=== PATIENT | female | born 1955 | race Caucasian/White ===

== ENCOUNTER 2019-01-08 08:53 | Observation (INO) | payer OTHER ==
[2019-01-05 11:27] LABS: Absolute Lymphocytes (CBC) 1.9 K/uL (0.7-4.9); Absolute Monocytes 0.5 K/uL (0.1-1.3); Absolute Neutrophil 4.2 K/uL (1.8-8.0); Basophils % 0.3 % (0-1.3); Eosinophils % 1.6 % (0-4.4); Hematocrit 39.9 % (36.0-45.0); Lymphocytes % 28.3 % (15.3-44.8); MPV 8.4 fL (7.6-11.3); Monocytes % 7.9 % (3.3-12.3); RBC Red Blood Cell Count 4.53 M/uL (3.86-4.86)
[2019-01-05 11:28] LABS: Urine Appearance CLEAR; Urine Bilirubin NEGATIVE (NEG); Urine Blood NEGATIVE (NEG); Urine Color YELLOW; Urine Glucose NEGATIVE (NEG); Urine Protein NEGATIVE (NEG); Urine Specific Gravity <=1.005 (1.005-1.030); Urine Urobilinogen 0.2 mg/dL (0.2-1.0)
[2019-01-05 11:29] LABS: Protime INR 0.89; Urine Microscopic Reflex NO UMIC
[2019-01-05 11:36] LABS: Potassium 3.8 mmol/L (3.5-5.1)
[2019-01-08] MEDS ORDERED: Ringers Lactate 1,000 ML IV ONE ×3 (09:08→14:29)
[2019-01-08] MEDS: CEFAZOLIN/SWI 2gm 2 GM/20 ML SYR ONE ×2 (09:52→11:05)
[2019-01-08] MEDS ORDERED: ROCURONIUM 50 MG/5 ML VIAL IV ONE ×2 (09:53→12:33)
[2019-01-08] MEDS ORDERED: PROPOFOL 200 MG/20 ML VIAL IV ONE (09:53)
[2019-01-08] MEDS ORDERED: DEXAMETHASONE 10 MG/ML VIAL ONE (09:54)
[2019-01-08] MEDS ORDERED: LIDOCAINE 2% MPF 5 ML VIAL ONE (09:54)
[2019-01-08] MEDS ORDERED: ONDANSETRON 4 MG/2 ML VIAL ONE (09:55)
[2019-01-08] MEDS ORDERED: FENTANYL CITR 250 MCG/5 ML ONE (09:55)
[2019-01-08] MEDS ORDERED: MIDAZOLAM HCL 2 MG/2 ML INJ ONE (09:55)
[2019-01-08] MEDS ORDERED: GLYCOPYRROLATE 0.2 MG/ML SYR ONE (09:56)
[2019-01-08] MEDS ORDERED: VASOPRESSIN 20 UNIT/ML VIAL ONE (10:26)
[2019-01-08] MEDS ORDERED: CEFAZOLIN/SWI 1gm 1 GM/10 ML SYR ONE (10:26)
[2019-01-08] MEDS ORDERED: NA CHLORIDE 0.9% 100 ML IV ONE (10:26)
[2019-01-08] MEDS ORDERED: EPHEDRINE SULF 50 MG/ML VIAL ONE ×2 (11:17→14:39)
[2019-01-08] MEDS ORDERED: MONTELUKAST 10 MG TAB PO PRN (15:00)
--- NOTE | 2019-01-08 15:00 | P.BOP ---
Preoperative diagnosis: stage 3 posterior wall defect, vault prolapse, perineocele Postoperative diagnosis: posterior enterocele repair Primary procedure: posterior wall repair site spec+xenfrom graft augment./chuck SSLF colpopexy Secondary procedure: perioneorrhapy cystoscopy Miner: Nhung Clayton Estimated blood loss: 100 Specimen: none Findings: -3/-3/-1/4/mod/6/0/+2/n/a Anesthesia: General Complications: None Drain(s): Urinary catheter Implants: xenform bovine Transferred to: Recovery Room Condition: Good
[2019-01-08 15:15] VITALS: O2SAT 98
[2019-01-08] MEDS ORDERED: HYDROMORPHONE HCL 1 MG/ML INJ ONE (15:16)
[2019-01-08] MEDS: MORPHINE 4 MG/ML SYR IV PRN ×2 (15:43→20:22)
[2019-01-08 16:33] VITALS: BMI 23.3
[2019-01-08] MEDS: ONDANSETRON 4 MG/2 ML VIAL IV PRN (16:34)
[2019-01-08 16:53] LABS: Potassium 3.6 mmol/L (3.5-5.1)
[2019-01-08] MEDS: ACETAMINOPHEN 500 MG TAB PO PRN (19:39)
[2019-01-08] MEDS: Ringers Lactate 1,000 ML IV SCH (20:23)
[2019-01-09] MEDS: ACETAMINOPHEN 500 MG TAB PO PRN (03:55)
[2019-01-09] MEDS: MORPHINE 4 MG/ML SYR IV PRN ×2 (04:15→10:33)
[2019-01-09 07:09] LABS: Absolute Lymphocytes (CBC) 1.5 K/uL (0.7-4.9); Absolute Monocytes 0.8 K/uL (0.1-1.3); Absolute Neutrophil 9.2 K/uL (1.8-8.0); Basophils % 0.1 % (0-1.3); Eosinophils % 0.4 % (0-4.4); Hematocrit 31.2 % (36.0-45.0); Monocytes % 7.3 % (3.3-12.3); RBC Red Blood Cell Count 3.53 M/uL (3.86-4.86)
[2019-01-09] MEDS: Ringers Lactate 1,000 ML IV SCH ×2 (07:10→18:00)
[2019-01-09] MEDS: ONDANSETRON 4 MG/2 ML VIAL IV PRN ×3 (07:38→23:10)
[2019-01-09] MEDS ORDERED: PARoxetine HCl 10 MG TAB PO SCH (09:00)
[2019-01-09] MEDS ORDERED: NA CHLORIDE 0.9% 500 ML IV ONE (10:08)
[2019-01-09] MEDS ORDERED: NA CHLORIDE 0.9% 1,000 ML IV ONE ×2 (10:13→15:00)
[2019-01-09] MEDS ORDERED: Levofloxacin500mg IV 500 MG/100 ML BAG IV SCH ×2 (11:00)
[2019-01-09] MEDS: METRONIDAZOLE 500mg IVPB 500 MG/100 ML BAG IV SCH ×2 (12:53→21:36)
[2019-01-09] MEDS ORDERED: PROMETHAZINE 25 MG/ML VIAL IV ONE (15:00)
[2019-01-09 17:31] LABS: Absolute Lymphocytes (CBC) 1.3 K/uL (0.7-4.9); Absolute Monocytes 0.6 K/uL (0.1-1.3); Absolute Neutrophil 8.3 K/uL (1.8-8.0); Basophils % 0.1 % (0-1.3); Eosinophils % 0.4 % (0-4.4); Lymphocytes % 12.7 % (15.3-44.8); MPV 8.6 fL (7.6-11.3); Monocytes % 6.2 % (3.3-12.3); RBC Red Blood Cell Count 3.46 M/uL (3.86-4.86)
[2019-01-09 17:50] LABS: BUN Blood Urea Nitrogen 8 mg/dL (7-18); Bicarbonate 29 mmol/L (21-32); Glucose Level 100 mg/dL (74-106); Potassium 4.6 mmol/L (3.5-5.1); Sodium Level 130 mmol/L (136-145)
[2019-01-09] MEDS: PROMETHAZINE 25 MG/ML VIAL IV PRN ×2 (18:00→22:04)
[2019-01-09] MEDS: ACETAMINOPHEN 325 MG TABLET PO PRN (18:00)
[2019-01-09] MEDS ORDERED: ACETAMINOPHEN 325 MG TABLET ONE (18:03)
[2019-01-10] MEDS: Ringers Lactate 1,000 ML IV SCH (01:45)
[2019-01-10] MEDS: ACETAMINOPHEN 325 MG TABLET PO PRN (05:02)
[2019-01-10 05:14] VITALS: BP 113/65; TEMP 98.1
[2019-01-10] MEDS: METRONIDAZOLE 500mg IVPB 500 MG/100 ML BAG IV SCH (05:33)
[2019-01-10] MEDS ORDERED: IBUPROFEN 400 MG TAB PO PRN (08:20)
[2019-01-10] MEDS ORDERED: TRAMADOL HCL 50 MG TAB PO PRN (08:22)
--- NOTE | 2019-01-10 10:14 | P.PN ---
Subjective Date of Service: 01/10/19 Chief Complaint: post op nause Subjective: Improving (nause significantly improved, tolerated diet well, bowel function continues to be adequate, no abdominal pain, no rectal pain, ambulatory in halls) Physical Examination - Vital Signs Temperature: 98.1 F Blood Pressure: 113/65 Pulse: 75 Respirations: 12 Pulse Ox (%): 95 - Physical Exam General: Alert, In no apparent distress, Cooperative Respiratory: Clear to auscultation bilaterally Gastrointestinal: Soft and benign, Non-distended, No ascites, No tenderness, No masses, No rebound, No guarding - Studies Laboratory Data (last 24 hrs) 01/09/19 17:17: Sodium 130 L, Potassium 4.6, BUN 8, Creatinine 0.52 L, Glucose 100 01/09/19 17:17: WBC 10.4, Hgb 10.5 L, Hct 31.0 L, Plt Count 157 Assessment And Plan - Plan - patient is doing well, ok to discharge home from surgical standpoint, I have instructed patient to call me with any GI concerns including but not limited to pain, distention, fever >101, worsening nausea, emesis, inability to tolerate PO , weakness, or any other concerns.
--- NOTE | 2019-01-10 11:21 | CON ---
Date of Consultation: 01/09/2019 Reason For Consultation: Postop assistance with management. Brief History Of Present Illness: The patient is a 63-year-old female, who presents to the hospital with history of gynecologic problems, specifically related to a rectocele and a history of perineoplasty, bilateral SSLF colpopexy, rectocele repair with Xenform, post enterocele repair, perin eorrhaphy and cystoscopy. She underwent a posterior wall repair, size specific with Xenform graft au gment, and bilateral SSLF colpopexy with a perineorrhaphy and cystoscopy for stage III posterior wall defect vault prolapse and perineocele. She underwent the procedure on 01/08/2019, which was essenti ally uneventful. However, postoperatively, she had some nausea and some slight leukocytosis, and as such I was consulted to help assist for possible gastrointestinal issues. During my examination, the patient states that she has no abdominal pain, no emesis, but does have low-grade nausea intermitten tly and decreased p.o. intake. Otherwise, she only has some mild pain related to the surgical site, which is a transvaginal approach. She has no intraabdominal pain, tenderness, or any other complaint s. No distention. She has been having some bowel function without blood or issues. Past Medical History: Significant for an abnormal heartbeat. Past Surgical History: Vaginal hysterectomy, anterior colporrhaphy, Dr. Freeman for uterine prolaps e, USL fixation with vaginal hysterectomy in 2013, bilateral tubal ligation 1997, breast augmentation 2003. Family History: No significant family history. Social History: She denies smoking, alcohol, or recreational drug use. Medications: At home include Paxil, Singulair, Premarin, vitamins, baby aspirin. Allergies: NO KNOWN DRUG ALLERGIES. Physical Examination: Vital Signs: At the time of examination, her BMI is 23.3, her blood pressure was 119/69, pulse 69, r espiratory rate 12, temperature 98.0. General: She is awake, alert, and oriented. Psychiatric: She is appropriate and conversive. HEENT: She is normocephalic. Her sclerae are anicteric. Her mucous membranes are moist. Her oroph arynx is clear. Neck: Supple. No JVD. Chest: Normal expansion and excursion. Cardiovascular: Regular rate and rhythm. Pulmonary: Clear to auscultation bilaterally. Abdomen: Soft, nontender, nondistended. No rebound. No guarding. No focal peritonitis. She has a completely benign abdominal exam. Rectal Examination: Also completely normal. No pain, no tenderness, no masses. She does have small internal hemorrhoids. These are likely grade 1 internal hemorrhoids. There is no tenderness. No t hickening. No concerning findings on the digital rectal examination. There is no blood on the recta l examination as well. Extremities: No clubbing, cyanosis, or edema. Skin: Warm and dry. Laboratory Data: Reveals a white blood cell count of 11.6, hemoglobin 10.7, hematocrit 31.2, platele t count is 186, neutrophils are 79%. Her sodium was 142, potassium 3.6, chloride 108, carbon dioxide 26, BUN 16, creatinine 0.7, glucose is 169, calcium 8.1. She had no imaging performed. Assessment And Plan: This is a 63-year-old woman, who presents with a slight leukocytosis and slight nausea postoperatively. 1.Continue IV fluid hydration. 2.Antibiotic coverage with Levaquin and Flagyl. 3.I do not find the patient has any evidence of intestinal injury or any other surgical emergency or gastrointestinal findings of concern at this time. I find that the patient likely is experiencing m any of these as a normal course of postoperative systemic inflammatory response syndrome as well as e ffect from anesthesia, likely contributing to her overall nausea situation. However, it continues to improve at this time. She has been tolerating liquids by mouth without any actual emesis, but does have low-grade nausea. An additional contribution could be medication effect, but I feel that this i s likely related to anesthesia, medications, and not related specifically to the surgery performed. Therefore, I will defer to Dr. Sotelo's expertise in this regard. However, I do not find that she has any need for surgical intervention and recommend continued care under Dr. Sotelo's care per her recommendations. Thank you for this interesting consult. I have explained the risks, benefits, and alternatives of th e above stated plan. The patient agrees to proceed as indicated. GARCÍA/PAM Voice ID: [id number] Report ID: [id number]
--- NOTE | 2019-01-10 14:06 | OP ---
Date of Procedure: 01/08/2019 Surgeon: Mona Sotelo MD Bathing Suit Maker: Nhung Clayton. Preoperative Diagnoses: Stage 3 posterior vault prolapse and perineal body defect. Postoperative Diagnoses: Stage 3 rectocele, vault prolapse, perineal body defect, and posterior ente rocele. Procedures Performed: 1.Bilateral sacrospinous ligament fixation colpopexy using a Xenform graft. 2.Posterior repair (rectocele repair) with Xenform biological graft augmentation. 3.Posterior enterocele repair. 4.Perineorrhaphy and cystoscopy. Anesthesia: General. Specimens: None. Complications: None. Drains: Ghotra catheter and vaginal packing. Estimated Blood Loss: 100. Urine Output: Less than 100 dark urine. Indications For Procedure: The patient is a 63-year-old female who presented with posterior vault pr olapse, complaining of bulge symptoms. She had uterine prolapse in 2013 and had surgery with vaginal hysterectomy, anterior colporrhaphy by Dr. Freeman and uterosacral ligament fixation probably at th e same time. Progressively, her bulge symptoms had gotten worse to the point that she had come to me for evaluatio n. On examination, she was found to have stage 3 prolapse. We discussed the options of pessary repa ir and observation. She wanted to proceed with a pessary. She also was unsure that performing Kegel exercise would help enhance the long-term pelvic floor muscle strength and she was ready to do this. Did not need help with physical therapy. She was able to contract her levator muscles optimally. She was fully evaluated, had medical clearance. Then, she was scheduled for surgery after understand ing that posterior repair had to be augmented with Xenform graft, which could then be used to have an optimal vault suspension procedure as well. Vault suspension was needed, historically sounds like t he patient had a level 1 defect, which still is a significant defect at this point, which is only 4 y ears post hysterectomy. The vault was at -2. So, she was consented for this. Alternatives of unila teral sacrospinous colpopexy with rectocele repair or laparoscopic sacrocolpopexy with the graft nora g over the posterior compartment, perineorrhaphy were all discussed with the patient. The patient de sired to proceed with the vaginal route. She was brought to the OR, 2 g of Ancef were given. After re-consenting, she was taken back to the OR, placed in a supine fashion on the operating room table. After general anesthesia was given, she was placed in dorsal lithotomy position using Billy stirrups . Positioning was checked and was good. Pelvic exam was performed. Her POP-Q showed a point BP at +3 and point C at -1. This showed the POP-Q was the same. Lower abdomen, vulva, vagina, and perineu m were prepped and draped in a sterile fashion. Ghotra was placed to drain the bladder and retracted with the Ivone clamp after draining it. Both the lateral aspects of the vestibule were grasped with the Allis clamps. The midline posterior wall with the enterocele were all held on Allis clamps x3, a nd the vaginal apex was well seen. There appeared to be a superior transverse defect from the proxim al part of the remnant of the rectovaginal septum to the apex. There also appeared to be a lateral d efect. The rugated vaginal epithelium appeared to be deviated to the right and appeared to be a smal l part in the lower 2 cm. Plan was to proceed with a site-specific repair in the distal part of the rectovaginal septum with gr aft augmentation on the top and attachment of the graft to the perineal body after perineal body was reconstructed. After dilute vasopressin was injected, 20 units mixed with 50 cc of normal saline. After this was in jected in the midline all the way to the apex and the perineum, a triangular skin incision was made w ith a 15-blade, skin removed. The posterior compartment was entered and dissection carried superiorl y all the way to the vaginal wall and the rectum, and the subepithelial tissues were all taken down. The rectum and the septum was preserved as much as possible. There was absence of the septum on the top half to 2/3. Here clear enterocele was seen. Enterocele was dissected and isolated. This was closed with the help of a 3-0 Vicryl suture x2 in a circumferential pursestring fashion. Once this w as all reduced, then the rectovaginal septum was repaired laterally on the mid part of the vaginal ca nal. The plan was to repair the lower part as well. I put in 3 interrupted 2-0 Vicryl sutures and l eft in place, which later on did not appear to be appropriately aligned, and so I had to take those s utures down and replace them with Vicryl sutures. There were 3 sutures placed to tag the top, then t he 2 bottom aspects, all the way down to the perineal body on the left side. Then the Xenform graft was taken after dissecting the ischial spines on both sides and fashioned with 10 cm from the proxima l part of the graft with the stitch placed about 0.5 to 1 cm inside of the lateral aspects of the sti tches placed 8-9 cm apart on the graft and 3 central sutures with Prolene to the vaginal apex with 3- 0 Prolene. Also similar sutures of Prolene were placed on the proximal part of the graft where attac hment was placed through the Xenform and sacrospinous. The 3 Prolene sutures were placed in the cent er and marked with different clamps, then the sacrospinous dissection was approached. First the sacr ospinous dissection was done on the left side without any problems moving the rectum away from the co ccygeus muscle and the sacrospinous ligament. Once the sacrospinous ligament was well visualized aft er cleaning of the superficial connective tissue, then I was able to use a Capio device to put a stit ch of Prolene over this and 2 cm medial and posterior to the ischial spine on the sacrospinous ligame nt a bite was taken. On the right side, the dissection was well performed. However, there was small amount of filmy connective tissue and fibrofatty tissue on the coccygeus muscle still. It was very difficult to sweep this off, so a suture was placed 2 cm medial and posterior to the ischial spine wi th the Capio device. I was not satisfied with the proximity of this to the colon after performing th e rectal exam, the suture was confirmed not to be in the colon. However, it had not been as lateral as I would like. So, this suture was promptly removed and I stayed 1 cm medial to the ischial spine on the sacrospinous ligament and the Capio was used with Prolene to take another bite and once this w as done I was confident that it was far away from the rectum and on rectal exam it felt the same way. After fashioning the Xenform graft with 6 cm length in the center and then 2 cm at the distal part, t he trapezoid was cut out and 2 lateral sutures were placed with the 2-0 PDS and left in place 3 cm di stal to the sacrospinous bites. This was on the proximal attachment of the lateral wall and the post erior wall and there was another marking placed for the lower lateral wall. All the sutures in the c enter were attached to the Xenform. Then both sacrospinous sutures were placed with a half a hitch, then the center 3 were tied, then sacrospinous was tied on the left and then on the right. There wer e no problems with this. Then, the lateral sutures were attached to the lateral wall. The plication of the rectovaginal septum was done in the center with interrupted 2-0 Vicryl sutures since the sept um was repaired and reattached to the lateral wall. This was done because the fascia appeared to be lax. The Xenform graft was then brought down. The perineal body was rebuilt. The reconstruction was done with the help of 2-0 Vicryl sutures on a CT-2 needle. A finger was placed while I was placing these sutures. Two layers of 2-0 Vicryl sutures were done to reconstruct the perineal body. Once this wa s done, then went on to get the distal graft attached with PDS suture in the center and then laterall y the PDS sutures were hooked up to the lateral wall. Continuous running stitch was done on the lowe r aspect of the graft on the left side, so that this can be nicely attached without any area of weakn ess that could herniate later, as this was the area of the defect where the rectovaginal septum was d etached. The vaginal epithelium was slightly trimmed about half a centimeter on each side to take of the redun katy. Then, the 2-0 Vicryl in a continuous running fashion was used to close the posterior wall. T here was excellent elevation of the graft. The point C was -5 to -6. Tensioning on the graft was do ne appropriately by moving the suture 1 cm medial to it, then attaching it to the right side because I did not feel like the apex was well lifted. Once that was done, there was excellent elevation and depth of the vaginal canal. This was done even before all the sutures were done. After the 2-0 Vicryl closure was done, the perineum was closed with the help of 3-0 Vicryl in a camelia nuous subcutaneous and subcuticular fashion tying the knot inside the hymenal ring. Rectal exam was performed. No evidence of any trauma. Ghotra removed. Cystoscopy was performed with a 17-Israeli she ath, 30-degree lens and normal saline. There were normal jets of urine from both ureteric orifices. No evidence of any foreign body or trauma to the bladder. The bladder was well supported. There wa s no need for any repair after the whole procedure was done. The genital hiatus was 3-4 cm, not too tight, the patient was recovered from anesthesia. Instrument, needle, and sponge counts x3 were done and were correct at the end of the case. Vaginal packing was placed and Ghotra replaced. The patien t was to stay in the hospital overnight for voiding trials. KISHAN Voice ID: [id number] Report ID: [id number]
== END 2019-01-10 11:30 | disposition home or self-care (01) ==
LOC: OR 08:53 → 2ND-WC 14:51
PROVIDERS: ADMIT Obstetrics & Gynecology; ATTEND Obstetrics & Gynecology
PROC: 0JUC0JZ Supplement of Pelvic Region Subcutaneous Tissue and Fascia with Synthetic Substitute, Open Approach (ICD-10-PCS; 2019-01-08)
PROC: 0UQF0ZZ Repair Cul-de-sac, Open Approach (ICD-10-PCS; 2019-01-08)
PROC: 0JQC0ZZ Repair Pelvic Region Subcutaneous Tissue and Fascia, Open Approach (ICD-10-PCS; 2019-01-08)
PROC: 0WQN0ZZ Repair Female Perineum, Open Approach (ICD-10-PCS; 2019-01-08)
PROC: 0USG7ZZ Reposition Vagina, Via Natural or Artificial Opening (ICD-10-PCS; principal; 2019-01-08 10:30)
DX: N81.6 Rectocele (principal); N99.3 Prolapse of vaginal vault after hysterectomy; R11.0 Nausea; R00.9 Unspecified abnormalities of heart beat; D72.829 Elevated white blood cell count, unspecified
CPT/HCPCS: 36415; 80048; 81003; 85025; 85610; 85730; 86850; 86900; 86901; G0378; J0690; J1100; J1170; J2250; J2405; J2550; J2704; J3010; J7030